=== PATIENT | female | born 1995 | race African-American/Black ===

== ENCOUNTER 2020-07-23 20:57 | Emergency (ER) | payer OTHER ==
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
[2020-07-23 21:08] VITALS: BP 123/76
--- NOTE | 2020-07-23 21:11 | ED Physician Documentation ---
PD HPI HEENT - Stated complaint Stated Complaint: FACIAL ALERGIC REACTION - Chief complaint Chief Complaint: Heent - History obtained from History obtained from: Patient - History of Present Illness Timing - onset: How many weeks ago (2) Timing - duration: Weeks (2) Timing - details: Gradual onset, Waxing and waning Location: Tooth (left lower molar with pain and swelling. Seen at clinic and given Rx for Clindamycin. She says the swelling undulated over the next several days, so took abx inconsistently. She felt the swelling was worse when took the clinda. Has not more pain and swelling the past 3 days. Wary of taking the abx.) Improves: No: Medication Associated symptoms: Facial swelling (left mandible area). No: Fever, Congestion Recently seen: Clinic Review of Systems Constitutional: denies: Fever, Chills Nose: denies: Rhinorrhea / runny nose, Congestion Throat: denies: Sore throat Respiratory: denies: Cough Skin: denies: Rash, Lesions Neurologic: denies: Headache PD PAST MEDICAL HISTORY - Past Medical History Past Medical History: No - Present Medications Home Medications: Ambulatory Orders Medication Instructions Recorded Confirmed Clindamycin [Cleocin] 150 mg PO Q8HR 07/23/20 07/23/20 Doxycycline Monohydrate 150 mg PO BID #14 capsule 07/23/20 Hydrocodone/Acetaminophen [[place] 1 each PO Q6H PRN #15 tablet 07/23/20 5-325 Tablet] Ibuprofen [Motrin] 600 mg PO TID PRN #25 tab 07/23/20 - Allergies Allergies/Adverse Reactions: Allergies Allergy/AdvReac Type Severity Reaction Status Date / Time Penicillins Allergy Unknown Verified 07/23/20 21:12 PD ED PE NORMAL - Vitals Vital signs reviewed: Yes - General General: Alert and oriented X 3, Well developed/nourished, Other (appears uncomfortable due to facial pain/swelling, and pain with opening her mouth. Normal voice. ) - HEENT HEENT: Other (left mandible area with swelling and tenderness. No noted fluctuance per se. Bedside U/S showing swelling and just small rim of fluid along mandible 3-4 mm wide or so. No focal abscess seen per se. ) - Neck Neck: Supple, no meningeal sign, No adenopathy - Cardiac Cardiac: RRR, No murmur - Respiratory Respiratory: Clear bilaterally - Derm Derm: Normal color, Warm and dry, No rash - Neuro Neuro: Alert and oriented X 3, No motor deficit, Normal speech Results - Vitals Vitals: Vital Signs - 24 hr 07/23/20 21:02 Temperature 36.3 C L Heart Rate 87 Respiratory 16 Rate Blood Pressure 123/76 O2 Saturation 100 Oxygen O2 Source Room air Departure - Departure Disposition: 01 Home, Self Care Clinical Impression: Dental abscess Condition: Stable Record reviewed to determine appropriate education?: Yes Instructions: ED Abscess Dental Prescriptions: Doxycycline Monohydrate 150 mg PO BID #14 capsule Ibuprofen [Motrin] 600 mg PO TID PRN #25 tab PRN Reason: Pain Hydrocodone/Acetaminophen [[place] 5-325 Tablet] 1 each PO Q6H PRN #15 tablet PRN Reason: Pain Comments: We can change antibiotics in case there was some component of reaction to the clindamycin. Mostly I believe the infection is just worsening. I do not see enough of an abscess in the soft tissue at this point to drain it; mostly swelling. You will need dental follow up for more definitive care of the infection at the base of the tooth. Doxycycline antibiotic twice daily for a week with food. Ibuprofen 3 times daily for pain and swelling. Add Tylenol or hydrocodone as needed for pain. Follow up with dental in the next several days for more definitive care of the tooth infection. Forms: Activity restrictions Discharge Date/Time: 07/23/20 21:50
[2020-07-23] MEDS ORDERED: HYDROcod/ACETAM 5/325 MG TABLET PO STA (21:34)
[2020-07-23] MEDS ORDERED: DOXYCYCLINE 100 MG TABLET PO STA (21:34)
[2020-07-23] MEDS ORDERED: CHERRY SYRUP 10 ML UDC PO ONE (21:34)
[2020-07-23] MEDS ORDERED: HYDROcod/ACET 5/325 Prepack 4 PO STA (21:34)
[2020-07-23] MEDS ORDERED: NAPROXEN 250 MG TABLET PO STA (21:34)
[2020-07-23] MEDS ORDERED: DEXAMETHASONE 10 MG/ML VIAL PO STA (21:34)
== END 2020-07-23 21:50 | disposition home or self-care (01) ==
LOC: ED 20:57
DX: K04.7 Periapical abscess without sinus (principal); Z88.0 Allergy status to penicillin
CPT/HCPCS: 99283; 99284; A9270

== ENCOUNTER 2021-05-30 16:24 | Emergency (ER) | payer MEDICAID, OTHER ==
[2021-05-30 16:32] VITALS: BP 137/86
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
[2021-05-30] MEDS ORDERED: IBUPROFEN 400 MG TABLET PO STA (16:51)
[2021-05-30] MEDS ORDERED: ACETAMINOPHEN 325 MG TABLET PO STA (16:51)
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
== END 2021-05-30 18:05 | disposition home or self-care (01) ==
LOC: ED 16:24
DX: S06.0X0A Concussion without loss of consciousness, initial encounter (principal); S00.03XA Contusion of scalp, initial encounter; S16.1XXA Strain of muscle, fascia and tendon at neck level, initial encounter; Y04.2XXA Assault by strike against or bumped into by another person, initial encounter; Y92.009 Unspecified place in unspecified non-institutional (private) residence as the place of occurrence of the external cause; F43.0 Acute stress reaction; F41.9 Anxiety disorder, unspecified
CPT/HCPCS: 70450; 72125; 99284; A9270